=== PATIENT | female | born 1955 | race Caucasian/White ===

== ENCOUNTER → 2016-10-10 | Outpatient (CLI) | payer BC ==
--- NOTE | ~2016-10-10 | PUL ---
[facility] AGE[facility] 61 Y [address] ROOM: [place] [address] LOCATION: [facility] ADMIT DATE: 10/10/2016 Pulmonary DISCHARGE DATE: FAMILY PHYSICIAN: Gadiel Yin MD ATTENDING PHYSICIAN: Isael Watson DATE OF PROCEDURE: Sleep study PROCEDURE DATE: 10/10/16 TECH: JEANNA Patel TEST #: [facility] [place]# [id number] TECHNICAL PARAMETERS: The patient was studied using International 10/20 measuring system. While the patient was studied, there was continuous monitoring of EEG (8 leads), EOG (2 leads), EKG (3 leads), submental EMG (3 leads), tibial (4 leads), respiratory inductive plethysmography (RIP) for thoracic and abdominal effort, oral and nasal airflow with a thermocouple and pressure transducer, and oximetry. The environmental engineering technician also performed visual and auditory observations noting things like body position, patient's status, breath sounds, artifact, snoring level and patient comments. Continuous sound was monitored using a 2-way speaker system and video monitoring was performed using an infrared camera. Review of the entire study was performed epoch by epoch utilizing a single epoch and multiple epoch capability sleep system. MEDICAL HISTORY: The patient is a 61-year-old overweight woman with daytime sleepiness and snoring. SLEEP STAGE SUMMARY: The patient was studied for 490 minutes of which she slept 350 minutes. She fell asleep in 3 minutes and slept for 71% of the night. Sleep architecture revealed a decline in slow wave and REM sleep. RESPIRATORY SUMMARY: Oxygen saturations ranged from 75-90%. Saturations were below 88% for 235 minutes. CPAP was initiated at the beginning of this study and titrated to 18 cm. Good control of the respiratory events was achieved on that setting. EKG SUMMARY: Normal sinus rhythm with no significant dysrhythmias were noted. LIMB MOVEMENT SUMMARY: Occasional periodic limb movements were noted. These are probably not clinically relevant. IMPRESSION: Obstructive sleep apnea responsive to CPAP at 18 cm. [facility] AGE: 61 Y [address] ROOM: [place] [address] LOCATION: [facility] ADMIT DATE: 10/10/2016 Pulmonary DISCHARGE DATE: FAMILY PHYSICIAN: Gadiel Yin MD ATTENDING PHYSICIAN: Isael Watson PLAN: Suggest CPAP at 18 cm. ÁNGEL LIMA MD /[id number] dtt: 10/17/16 0806 , Ángel Lima. dtd: 10/13/16 1215
== END | disposition disaster alternative care site (69) ==
LOC: GSLP 20:23
DX: G47.33 Obstructive sleep apnea (adult) (pediatric) (principal)